=== PATIENT | female | born 1990 | race American Indian/Alaskan Native ===

== ENCOUNTER 2016-09-30 02:00 | Emergency (ER) | payer SELFPAY ==
--- NOTE | 2016-09-30 02:33 | C.PDOC ---
Time Seen by Provider: 09/30/16 02:08 Chief Complaint (Nursing): Abnormal Skin Integrity Past Medical History Vital Signs: Last Vital Signs Temp 98.2 F 09/30/16 02:05 Pulse 92 H 09/30/16 02:05 Resp 20 09/30/16 02:05 BP 130/86 09/30/16 02:05 Pulse Ox 97 09/30/16 02:35 Family History: States: No Known Family Hx - Social History Hx Alcohol Use: Yes Hx Substance Use: No - Immunization History Hx Tetanus Toxoid Vaccination: No Hx Influenza Vaccination: No Hx Pneumococcal Vaccination: No ED Course And Treatment O2 Sat by Pulse Oximetry: 97 (Room air)
[2016-09-30] MEDS ORDERED: Bacitracin 500 Units/gm Oint Foilpak UD TOP ONE (02:50)
--- NOTE | 2016-09-30 02:52 | C.PDOC ---
History Of Present Illness Patient is a 26 year old female who presents to the ER with a laceration to the medial aspect of her left finger caused by a broken glass. no numbness or tingling. . Denies any other physical complaint at this time. Time Seen by Provider: 09/30/16 02:08 Chief Complaint (Nursing): Abnormal Skin Integrity History Per: Patient History/Exam Limitations: no limitations Onset/Duration Of Symptoms: Hrs Location Of Injury: Left: Hand (finger, medial aspect ) Past Medical History Reviewed: Historical Data, Nursing Documentation, Vital Signs Vital Signs: Last Vital Signs Temp 98.2 F 09/30/16 02:05 Pulse 92 H 09/30/16 02:05 Resp 20 09/30/16 02:05 BP 130/86 09/30/16 02:05 Pulse Ox 97 09/30/16 04:09 - Medical History PMH: No Chronic Diseases Surgical History: No Surg Hx Family History: States: Unknown Family Hx - Social History Hx Alcohol Use: Yes Hx Substance Use: No - Immunization History Hx Tetanus Toxoid Vaccination: No Hx Influenza Vaccination: No Hx Pneumococcal Vaccination: No Review Of Systems Constitutional: Negative for: Fever Musculoskeletal: Positive for: Other (Laceration, medial aspect of left finger) Physical Exam - Physical Exam Appears: Well, Non-toxic Skin: Normal Color, Warm, Dry Head: Atraumatic, Normacephalic Oral Mucosa: Moist Extremity: Other (Laceration, medial aspect of left finger, 4 cm longitudinal w / /4 in skin flap) Neurological/Psych: Oriented x3, Normal Speech, Normal Cognition ED Course And Treatment O2 Sat by Pulse Oximetry: 97 (Room air) Pulse Ox Interpretation: Normal Progress Note: Bacitracin and ibuprofen PO administered. POC test ordered. Laceration - Laceration Repair Left finger Wound Length (In cm): 4 cm long by 1/4 swide, skin flap Description Of Wound: Linear Wound Cleansed With: Betadine Anesthesia: Lidocaine 1% Wound Examination: Irrigated With Saline, No Tendon Injury With Wound Exploration Wound Closure: Suture Suture Technique And Material Used: Running, Interrupted Wound Complexity: Simple Medical Decision Making Medical Decision Making: laceration repaired,. pt tolerated procedure well. bacitracin and splint applied to finger. will d/c with keflex. Disposition - Disposition Disposition: HOME/ ROUTINE Disposition Time: 04:10 Condition: IMPROVED Additional Instructions: Keep wound clean and dry. Keep bandage on until Thur night, then remove, wash gently with soap and water, apply antibiotic ointment and dressing. Suture removal in 7 days. Return to ER for any signs of infection, such as redness,. swelling. discharge/ Prescriptions: Cephalexin [cephalexin] 500 mg PO QID #20 cap Instructions: Care For Your Stitches (ED), Laceration (ED) Forms: General Discharge Instructions - Clinical Impression Clinical Impression: Laceration of left middle finger
[2016-09-30] MEDS ORDERED: Bacitracin 500 Units/gm Oint Foilpak UD ONE (03:17)
[2016-09-30] MEDS ORDERED: Lidocaine 2% Inj (20ml) ONE (03:19)
[2016-09-30 04:27] VITALS: BP 88/58; PULSE 73; RESP 18; TEMP 98.6; O2SAT 100
== END 2016-09-30 04:24 | disposition home or self-care (01) ==
LOC: C.ER 02:00
DX: S61.213A Laceration without foreign body of left middle finger without damage to nail, initial encounter (principal); W25.XXXA Contact with sharp glass, initial encounter; Y93.9 Activity, unspecified; Y92.9 Unspecified place or not applicable